=== PATIENT | male | born 1970 | race Two or more races ===

== ENCOUNTER 2023-03-30 23:55 | Emergency (ER) | payer OTHER ==
[~2023-03-30] VITALS: Ht 182.9 cm; Wt 100.0 kg
[2023-03-30 23:55] VITALS: BP 143/88; PULSE 94; RESP 18; O2SAT 98
== END 2023-03-31 04:35 | disposition left against medical advice (07) ==
LOC: ER 23:55
DX: S61.218A Laceration without foreign body of other finger without damage to nail, initial encounter (principal); Z53.21 Procedure and treatment not carried out due to patient leaving prior to being seen by health care provider; W25.XXXA Contact with sharp glass, initial encounter; Y93.89 Activity, other specified; Y92.89 Other specified places as the place of occurrence of the external cause; Y99.8 Other external cause status